=== PATIENT | female | born 1960 | race Caucasian/White ===

== ENCOUNTER 2016-11-21 04:00 | Emergency (ER) | payer SELFPAY ==
[~2016-11-21] VITALS: Ht 165.1 cm; Wt 78.0 kg
[~2016-11-21 04:00] MED LIST: MECL-62 PO; MOTI25CH PO; OMEP20TA PO
[2016-11-21 04:05] VITALS: BP 174/78; PULSE 87; RESP 16; TEMP 98.4; O2SAT 95
[2016-11-21] MEDS ORDERED: HYDR-3533 PO (04:13)
[2016-11-21] MEDS ORDERED: oxyCODONE/ACETAMINOPHEN 5 MG/325 MG TAB PO ONE (04:15)
[2016-11-21] MEDS ORDERED: ONDANSETRON ODT 4 MG TAB PO ONE (04:15)
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
--- NOTE | 2016-11-21 04:52 | RADRPT ---
EXAM DATE/TIME: 11/21/2016 04:34 [facility] COMPARISON: No previous studies available for comparison. INDICATIONS : Left knee pain with swelling post fall. MEDICAL HISTORY : Carcinoma, breast. Glaucoma SURGICAL HISTORY : None. ENCOUNTER: Initial ACUITY: 1 day PAIN SCORE: 9/10 LOCATION: Left knee FINDINGS: A suprapatellar joint effusion is present. There is no evidence of acute fracture. Bony mineralizatio n is normal. There is mild osteoarthritis with joint space narrowing but no significant marginal oste ophyte formation in the medial tibiofemoral compartment. CONCLUSION: 1. Joint effusion. There is no evidence of acute fracture. Mulugeta Saldaña MD on November 21, 2016 at 4:50 Board Certified Radiologist. This report was verified electronically.
[2016-11-21] MEDS ORDERED: WALKER WHEELS/F1 MIS (05:03)
== END 2016-11-21 05:53 | disposition home or self-care (01) ==
LOC: NEPD 04:00
DX: M25.462 Effusion, left knee (principal); V89.0XXA Person injured in unspecified motor-vehicle accident, nontraffic, initial encounter; H40.9 Unspecified glaucoma; K21.9 Gastro-esophageal reflux disease without esophagitis; Z85.3 Personal history of malignant neoplasm of breast
CPT/HCPCS: 73564; 99284; E0113